=== PATIENT | male | born 1990 | race African-American/Black ===

== ENCOUNTER 2018-12-06 12:20 | Emergency (ER) | payer SELFPAY ==
[~2018-12-06] VITALS: Ht 177.8 cm; Wt 100.2 kg
[2018-12-06 12:25] VITALS: BP 143/73; PULSE 66; RESP 20; Ht 177.8 cm; Wt 100.2 kg
[2018-12-06] MEDS ORDERED: CEFTRIAXONE 250 MG INJ IM ONE (13:00)
[2018-12-06] MEDS ORDERED: AZITHROMYCIN 500 MG TAB PO ONE (13:00)
--- NOTE | 2018-12-06 13:03 | ERD ---
ER Documentation Chief Complaint Chief Complaint TESTICULAR SWELLING; WANTS TO GET TESTED FOR STD HPI Patient is a 28-year-old male who presents to the ER requesting "STD testing". Patient states he lives in [place] is visiting the area. Patient states he got a "phone call" from a partner who tested positive. Patient does not wish to disclose what phone call entitled. She states he wants to be tested for "everything". Patient denies any discharge. Patient states that his testicles were swollen earlier in the week however no longer present. ROS All systems reviewed and are negative except as per history of present illness. Medications Home Meds Active Scripts Mupirocin* (Bactroban*) 2% -22 Gram Oint...g., 1 APPLIC TOP BID for 7 Days, EA Prov:MAURO SMITH PA-C 12/06/18 Fmx Family History: No diabetes Physical Exam Vitals Vital Signs Date Temp Pulse Resp B/P (MAP) Pulse Ox O2 O2 Flow FiO2 Time Delivery Rate 12/06/18 97.6 66 20 143/73 97 12:25 (96) Physical Exam GENERAL: Well-developed, well-nourished male. Appears in no acute distress. HEAD: Normocephalic, atraumatic. EYES: Pupils are equally reactive bilaterally. EOMs grossly intact. No conjunctival erythema. NECK: Supple. No meningismus. Normal range of motion of the neck. LUNG: Clear to auscultation bilaterally. No rhonchi, wheezing, rales or coarse breath sounds. HEART: Regular rate and rhythm. No murmurs, rubs or gallops. : Declined. States "there is nothing to see down there" EXTREMITIES: Equal pulses bilaterally. No peripheral clubbing, cyanosis or edema. No unilateral leg swelling. NEUROLOGIC: Alert and oriented. Moving all four extremities without any difficulty. Normal speech. Steady gait. SKIN: Normal color. Warm and dry. No rashes or lesions. Results 24 hrs Current Medications Medications Dose Sig/Papo Start Time Status Last (Trade) Ordered Route PRN Stop Time Admin Dose Reason Admin Ceftriaxone 250 mg ONCE ONCE 12/06/18 DC 12/06/18 Sodium IM 13:00 13:03 (Rocephin) 12/06/18 13:01 1,000 mg ONCE ONCE 12/06/18 DC 12/06/18 Azithromycin PO 13:00 13:03 (Zithromax) 12/06/18 13:01 Procedures/MDM MEDICAL DECISION MAKING: Patient is a 28-year-old male presents the ER for concerns of wanting to be tested for STDs. Vital signs were reviewed. Patient is afebrile. Patient was not hypoxic. Patient declined exam. Patient declined testicular ultrasound. Gonorrhea chlamydia testing were obtained here in the ER. Patient will be empirically treated for gonorrhea chlamydia with Rocephin and azithromycin. [facility] testing. Patient advised he will need serial testing to rule out conditions like HIV. 1315: Patient notified nursing staff that he wants to show provider his rash. Patient at this time admitted that he poured bleach on his penis and testicles 3 to 4 days ago. Patient states he has tiny cuts on his penis shaft. electronic bench technician Mp present during time of examination. No obvious skin changes noted however patient does have a small 1 cm cut, no active bleeding. Mupirocin ointment will be given to prevent infection. Patient advised to avoid any other products or medications to the affected area. DISCHARGE: At this time, patient is stable for discharge and outpatient management. I have instructed the patient to follow-up with his/her primary care physician in 1-2 days. I have discussed with the patient the possibility of needing to see a specialist for further workup and imaging studies if symptoms persist. I have instructed the patient to promptly return to the ER for any new or worsening symptoms including increased pain, fever, nausea, vomiting, weakness or LOC. The patient and/or family expressed understanding of and agreement with this plan. All questions were answered. Home care instructions were provided. Disclaimer: Inadvertent spelling and grammatical errors are likely due to EHR/dictation software use and do not reflect on the overall quality of patient care. Also, please note that the electronic time recorded on this note does not necessarily reflect the actual time of the patient encounter. Departure Diagnosis: Primary Impression: Concern about STD in male without diagnosis Condition: Fair Patient Instructions: What Are Sexually Transmitted Diseases (STDs)? Referrals: COMMUNITY CLINICS YOU HAVE RECEIVED A MEDICAL SCREENING EXAM AND THE RESULTS INDICATE THAT YOU DO NOT HAVE A CONDITION THAT REQUIRES URGENT TREATMENT IN THE EMERGENCY DEPARTMENT. FURTHER EVALUATION AND TREATMENT OF YOUR CONDITION CAN WAIT UNTIL YOU ARE SEEN IN YOUR DOCTORS OFFICE WITHIN THE NEXT 1-2 DAYS. IT IS YOUR RESPONSIBILITY TO MAKE AN APPOINTMENT FOR FOLOW-UP CARE. IF YOU HAVE A PRIMARY DOCTOR --you should call your primary doctor and schedule an appointment IF YOU DO NOT HAVE A PRIMARY DOCTOR YOU CAN CALL OUR PHYSICIAN REFERRAL HOTLINE AT IF YOU CAN NOT AFFORD TO SEE A PHYSICIAN YOU CAN CHOSE FROM THE FOLLOWING [facility] [address] [facility] [address] [facility] [address] [facility] [address] [facility] [address] [facility]. [facility] [address] [facility]. [facility] YOU HAVE RECEIVED A MEDICAL SCREENING EXAM AND THE RESULTS INDICATE THAT YOU DO NOT HAVE A CONDITION THAT REQUIRES URGENT TREATMENT IN THE EMERGENCY DEPARTMENT. FURTHER EVALUATION AND TREATMENT OF YOUR CONDITION CAN WAIT UNTIL YOU ARE SEEN IN YOUR DOCTORS OFFICE WITHIN THE NEXT 1-2 DAYS. IT IS YOUR RESPONSIBILITY TO MAKE AN APPOINTMENT FOR FOLOW-UP CARE. IF YOU HAVE A PRIMARY DOCTOR --you should call your primary doctor and schedule and appointment IF YOU DO NOT HAVE A PRIMARY DOCTOR YOU CAN CALL OUR PHYSICIAN REFERRAL HOTLINE AT . IF YOU CAN NOT AFFORD TO SEE A PHYSICIAN YOU CAN CHOSE FROM THE FOLLOWING [facility]: [facility] [address] [place] [address] [facility] [address] [place] [address] [facility] [address] [place] [address] [facility] Hours: 8:00 am - 5:00 pm Additional Instructions: [facility] ([facility]Ds, HIV, Hepatitis B/C, HSV) MAURO SMITH PA-C December 06, 2018 13:03
[2018-12-06] MEDS ORDERED: MUPI22OI2 TOP (13:15)
== END 2018-12-06 13:38 | disposition home or self-care (01) ==
LOC: FTE 12:20
DX: Z20.2 Contact with and (suspected) exposure to infections with a predominantly sexual mode of transmission (principal)
CPT/HCPCS: 87591; 96372; 99284; J0696